=== PATIENT | male | born 1975 | race Caucasian/White ===

== ENCOUNTER 2016-07-31 15:34 | Outpatient (CLI) | payer OTHER ==
--- NOTE | 2016-07-31 16:24 | DIAGNOSTIC IMAGING REPORT ---
PROCEDURE: CT ABD/PELVIS WITH CONTRAST CLINICAL INDICATION: Right lower quadrant pain x 1.5 weeks. History of inflammatory bowel disease. TECHNIQUE: 85 ml of Isovue 300 were injected intravenously and axial images were obtained of the entire abdomen and pelvis with sagittal and coronal reformations. COMPARISON: CT abdomen/pelvis 05/08/2009. FINDINGS: ABDOMEN: Lung bases are clear. Heart size is normal. Liver, gallbladder, pancreas, spleen, adrenal glands and kidneys are normal. Normal abdominal aorta. PELVIS: Normal appendix. 10 cm long segment of the distal ileum with wall thickening, mild adjacent inflammatory changes and small amount of free fluid, similar to prior study.. There is no abscess or free air. Normal prostate and bladder. Bones are unremarkable. IMPRESSION: 1. 10 cm long segment of the distal ileum with wall thickening, inflammatory changes and small amount of free fluid. Findings consistent with Crohn disease or inflammatory bowel disease. 2. No abscess or free air 3. Results discussed with Dr. Leonard All CT scans at this facility use dose modulation, iterative reconstruction, and/or weight-based dosing when appropriate to reduce radiation dose to as low as reasonably achievable.
== END 2016-07-31 23:00 ==
LOC: CT SRH 15:34
DX: R10.9 Unspecified abdominal pain (principal); K63.9 Disease of intestine, unspecified